=== PATIENT | male | born 1990 | race Caucasian/White ===

== ENCOUNTER 2020-10-06 18:42 | Emergency (ER) | payer BC ==
[2020-10-06] MEDS ORDERED: Acetaminophen 325 MG Tab PO ONE (20:08)
--- NOTE | 2020-10-06 20:10 | EDM.PDOC ---
ED HPI GENERAL MEDICAL PROBLEM - General Chief Complaint: Fever Stated Complaint: FEVER,MIGRAINE,ACHY Time Seen by Provider: 10/06/20 20:08 Source of Information: Reports: Patient History Limitations: Reports: No Limitations - History of Present Illness INITIAL COMMENTS - FREE TEXT/NARRATIVE: Patient is unfortunate 30-year-old male who presents emerged part of today with complaint of fever chills body aches headache. Patient reports that symptoms started this morning and it progressed throughout the day. He reports that he has had exposure to Covid, he has not received the Covid vaccination he denies any chest pain no shortness of breath no cough no congestion no nausea no vomiting no diarrhea no loss of sense of taste no loss of sense of smell - Related Data Allergies Allergy/AdvReac Type Severity Reaction Status Date / Time No Known Allergies Allergy Verified 10/06/20 20:14 ED ROS GENERAL - Review of Systems Review Of Systems: See Below Constitutional: Reports: Fever, Chills, Malaise Musculoskeletal: Reports: Muscle Pain ED EXAM, GENERAL - Physical Exam Exam: See Below Exam Limited By: No Limitations General Appearance: Alert, WD/WN, Mild Distress Throat/Mouth: Normal Inspection, Normal Lips, Normal Teeth, Normal Gums, Normal Oropharynx, Normal Voice, No Airway Compromise Respiratory/Chest: No Respiratory Distress, Lungs Clear, Normal Breath Sounds, No Accessory Muscle Use, Chest Non-Tender Cardiovascular: Normal Peripheral Pulses, Regular Rate, Rhythm, No Edema, No Gallop, No JVD, No Murmur, No Rub GI/Abdominal: Normal Bowel Sounds, Soft, Non-Tender, No Organomegaly, No Distention, No Abnormal Bruit, No Mass Back Exam: Normal Inspection, Full Range of Motion, NT Extremities: Normal Inspection, Normal Range of Motion, Non-Tender, Normal Capillary Refill, No Pedal Edema Neurological: Alert, Oriented, CN II-XII Intact, Normal Cognition, Normal Gait, Normal Reflexes, No Motor/Sensory Deficits Skin Exam: Warm, Dry, Intact, Normal Color, No Rash Course - Vital Signs Last Recorded V/S: Last Vital Signs Temp 100.4 F 10/06/20 20:09 Pulse 89 10/06/20 20:09 Resp 20 10/06/20 20:09 BP 124/70 10/06/20 20:09 Pulse Ox 97 10/06/20 20:09 - Orders/Labs/Meds Labs: Laboratory Tests 10/06/20 Range/Units 20:08 SARS-CoV-2 RNA (RUY) Positive H (NEGATIVE) Meds: Medications Discontinued Medications Generic Name Dose Route Start Last Admin Trade Name [place] PRN Reason Stop Dose Admin Acetaminophen 650 mg 10/06/20 20:08 10/06/20 20:17 Acetaminophen 325 Mg Tab PO 10/06/20 20:09 650 mg NOW ONE Administration Departure - Departure Time of Disposition: 21:06 Disposition: [facility] Condition: Good Clinical Impression: COVID - Discharge Information *PRESCRIPTION DRUG MONITORING PROGRAM REVIEWED*: No *COPY OF PRESCRIPTION DRUG MONITORING REPORT IN PATIENT LUISA: No Instructions: COVID-19 Frequently Asked Questions, COVID-19: How to Protect Yourself and Others - [facility], COVID-19: What Your Test Results Mean - [facility] (07/18/2019), COVID-19: Quarantine vs. Isolation - [facility] (02/04/2020) Forms: ED Department Discharge Additional Instructions: Home, rest, adequate fluids, Tylenol for fever or pain, your Covid test was positive, you need to stay on quarantine for 10 days and until you have been fever free for 24 hours, return to the emergency department for any worsening condition Sepsis Event Note (ED) - Focused Exam Vital Signs: Vital Signs Temp Pulse Resp BP Pulse Ox 10/06/20 20:09 100.4 F 89 20 124/70 97
== END 2020-10-06 21:17 | disposition designated cancer center or children's hospital (05) ==
LOC: DL.ED 18:42
DX: U07.1 COVID-19 (principal)
CPT/HCPCS: 99282; 99283; A9270-GY; U0002

== ENCOUNTER 2021-12-27 06:33 | Day surgery (SDC) | payer BC, OTHER ==
[~2021-12-27 06:33] MED LIST: Dextrose 5%-0.45% NaCl 1,000 ML IV SCH; Midazolam 1 MG/ML 2 ML SDV ONE; Sodium Chloride 0.9% 10 ML Syringe FLUSH PRN; Sodium Chloride 0.9% 10 ML Syringe FLUSH SCH; fentaNYL 100 MCG/2 ML SDV ONE
[2021-12-27] MEDS ORDERED: fentaNYL 100 MCG/2 ML SDV IV ONE ×5 (06:34→07:37)
[2021-12-27] MEDS ORDERED: Midazolam 1 MG/ML 2 ML SDV IV ONE ×7 (06:34→07:34)
== END 2021-12-27 09:15 | disposition home or self-care (01) ==
LOC: DL.ENDO 06:33
PROVIDERS: ATTEND Internal Medicine Gastroenterology
DX: K62.5 Hemorrhage of anus and rectum (principal); F41.1 Generalized anxiety disorder; F32.A Depression, unspecified; F17.210 Nicotine dependence, cigarettes, uncomplicated; Z98.890 Other specified postprocedural states
CPT/HCPCS: 45378; J2250; J3010; J7042